=== PATIENT | female | born 1995 | race Caucasian/White ===

== ENCOUNTER 2024-11-26 15:28 | Inpatient (IN) | payer MEDICAID, OTHER ==
[2024-11-26 16:37] VITALS: BMI 34.2
[2024-11-26] MEDS ORDERED: Carboprost 250 MCG/ML AMP IM PRN (18:06)
[2024-11-26] MEDS ORDERED: Ondansetron PF 4 MG/2 ML Vial IVP PRN (18:06)
[2024-11-26] MEDS ORDERED: hydrALAZINE 20 MG/ML VIAL SLOW IVP PRN (18:06)
[2024-11-26] MEDS ORDERED: Ibuprofen 800 MG TAB PO PRN (18:06)
[2024-11-26] MEDS ORDERED: HYDROcodone/Acetaminophen 5/325 mg Tablet PO PRN (18:06)
[2024-11-26] MEDS ORDERED: Tranexamic Acid 1,000 MG/10 ML VIAL IVP PRN (18:06)
[2024-11-26] MEDS ORDERED: Methylergonovine 0.2 MG/ML VIAL IM PRN (18:06)
[2024-11-26] MEDS ORDERED: Diphenoxylate HCl/Atropine Tablet PO PRN (18:06)
[2024-11-26] MEDS ORDERED: Acetaminophen 500 MG TAB PO PRN (18:06)
[2024-11-26] MEDS ORDERED: Lidocaine 1% (PF) 30 ML VIAL SC PRN (18:06)
[2024-11-26 18:12] LABS: Hematocrit 29.0 % (34.9-44.5); Hemoglobin 9.1 g/dL (12.0-15.5); Mean Corpuscular Hemoglobin 23.5 pg (27.0-33.0); Mean Corpuscular Volume 74.7 fL (81.6-98.3); Platelet Count 357 10x3/uL (150-450); Red Blood Cell (RBC) Count 3.88 10x6/uL (3.90-5.03); White Blood Cell (WBC) Count 13.62 10x3/uL (3.5-10.5)
[2024-11-26] MEDS ORDERED: Oxytocin 30 units/NS 500 ML 500 ML IV SCH ×2 (18:15)
[2024-11-26 18:46] LABS: Syphilis Antibody Index 0.09 S/CO (<1.00 Non-Reactive)
[2024-11-26 18:47] LABS: Hep B Surf Ag - L&D Non-Reactive S/CO (NonReactive)
[2024-11-27] MEDS: fentaNYL/Ropivacaine Epidural 100 ML ONE (00:31)
[2024-11-27] MEDS ORDERED: Acetaminophen 325 MG TAB PO PRN (00:37)
[2024-11-27] MEDS ORDERED: diphenhydrAMINE 50 MG/ML VIAL IVP PRN (00:37)
[2024-11-27] MEDS ORDERED: Ondansetron PF 4 MG/2 ML Vial IVP PRN ×2 (00:37→14:04)
[2024-11-27] MEDS ORDERED: fentaNYL 2 mcg/Ropivacaine 0.2% Epidural 100 ML CADD EPIDURAL SCH (00:45)
[2024-11-27] MEDS ORDERED: Communication Order-Pharmacy FS SCH (00:45)
[2024-11-27] MEDS ORDERED: Bupivacaine 0.25% HCL 30 ML VIAL ONE (14:00)
[2024-11-27] MEDS ORDERED: hydrALAZINE 20 MG/ML VIAL SLOW IVP PRN (14:04)
[2024-11-27] MEDS ORDERED: Bisacodyl 10 MG SUPP PR PRN (14:04)
[2024-11-27] MEDS ORDERED: diphenhydrAMINE 25 MG CAP PO PRN (14:04)
[2024-11-27] MEDS ORDERED: Lanolin Ointment 7 GM TUBE TOP PRN (14:04)
[2024-11-27] MEDS ORDERED: Benzocaine-Menthol 82.5 ML CAN TOP PRN (14:04)
[2024-11-27] MEDS ORDERED: HYDROcodone/Acetaminophen 5/325 mg Tablet PO PRN (14:04)
[2024-11-27] MEDS ORDERED: Milk Of Magnesia 30 ML UDCUP PO PRN (14:04)
[2024-11-27] MEDS: Boostrix 0.5 ML (Tdap) VIAL (>/=7 yrs of age) IM ONE (14:37)
[2024-11-27] MEDS: Ibuprofen 800 MG TAB PO SCH (14:37)
[2024-11-27] MEDS: Ferrous Sulfate 325 MG TAB PO SCH (17:26)
[2024-11-28 07:40] VITALS: BP 97/54; TEMP 98
== END 2024-11-28 19:40 | disposition home or self-care (01) | DRG 807 ==
LOC: CSHLD/OP 15:28 → CSHLD 21:23 → CSHPED 11-27 11:15
PROVIDERS: ADMIT Family Medicine; ATTEND Family Medicine
PROC: 10E0XZZ Delivery of Products of Conception, External Approach (ICD-10-PCS; principal; 2024-11-27)
PROC: 0UQMXZZ Repair Vulva, External Approach (ICD-10-PCS; 2024-11-27)
PROC: 3E033VJ Introduction of Other Hormone into Peripheral Vein, Percutaneous Approach (ICD-10-PCS; 2024-11-27)
DX: O70.0 First degree perineal laceration during delivery (principal); Z37.0 Single live birth; Z3A.39 39 weeks gestation of pregnancy
CPT/HCPCS: 36415; 51702; 85027; 86780; 86850; 86900; 86901; 87340; 99285; J0665; J7120